=== PATIENT | male | born 1960 | race Caucasian/White ===

== ENCOUNTER 2018-05-13 18:01 | Inpatient (IN) | payer OTHER ==
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
[2018-05-13 19:28] LABS: BASO % 0.6 % (0-2.0); EOS % 0.8 % (0-4.5); HEMATOCRIT 48.4 % (35.4-49); HEMOGLOBIN 16.4 GM/dL (11.7-16.9); LYMPH % 10.5 % (8-40); MCH 30.6 pg (25.7-33.7); MCHC 33.9 g/dl (32.0-35.9); MEAN CELL VOLUME 90.3 fl (80-96); MONO % 7.7 % (3.8-10.2); NEUT % 80.4 % (42.8-82.8); PLATELET COUNT 311 K/MM3 (134-434); RBC 5.36 M/mm3 (4.00-5.60); RDW 13.8 % (11.9-15.9); WHITE BLOOD COUNT 19.7 K/mm3 (4.0-10.0)
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
[2018-05-13 20:26] LABS: INR 1.08 (0.83-1.09); PROTHROMBIN TIME (PATIENT) 12.8 SEC (9.7-13.0)
[2018-05-13 20:36] LABS: ALK PHOS 91 U/L (45-117); ANION GAP 11 MMOL/L (8-16); BILIRUBIN,TOTAL 0.6 mg/dL (0.2-1); BLOOD UREA NITROGEN 23 mg/dL (7-18); CALCIUM 9.2 mg/dL (8.5-10.1); CHLORIDE 95 mmol/L (98-107); CO2 30 mmol/L (21-32); GLUCOSE,RANDOM 134 mg/dL (74-106); N-TERMINAL BNP 71.3 pg/ml (5-125); SGOT/AST 17 U/L (15-37); SGPT/ALT 23 U/L (13-61); SODIUM 135 mmol/L (136-145); TOT PROT 8.2 g/dl (6.4-8.2)
[2018-05-13 20:41] LABS: POTASSIUM 2.8 mmol/L (3.5-5.1)
[2018-05-13] MEDS ORDERED: POTASSIUM CHLORIDE TABS 20 MEQ TABLET.ER (FP) PO ONE ×2 (20:41→21:45)
[2018-05-13] MEDS ORDERED: SODIUM CHLORIDE 0.9% 1000 ML INFUS.BAG IV ONE (22:48)
[2018-05-13] MEDS ORDERED: VANCOMYCIN 1,000 MG in DEXTROSE 5%-WATER - 250 ML IVPB ONE (23:01)
[2018-05-13] MEDS ORDERED: VANCOMYCIN 1 GRAM (PRE-DOCKED) 1,000 MG/250 ML BAG IVPB ONE (23:04)
[2018-05-13] MEDS ORDERED: SODIUM CHLORIDE 1,000 ML IV SCH (23:30)
--- NOTE | 2018-05-13 23:37 | HP ---
Admitting History and Physical - Admission Chief Complaint: sob on excertion. t wave inversions in my office History of Present Illness: h/o hiv ? 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??) Cardiovascular: Yes: HTN Pulmonary: Yes: Other (sob) Hepatobiliary: Yes: Hepatitis C - Smoking History Smoking history: Current every day smoker Have you smoked in the past 12 months: Yes Aproximately how many cigarettes per day: 20 - Alcohol/Substance Use Hx Alcohol Use: Yes (VODKA) - Social History Usual Living Arrangement: Yes: Alone ADL: Independent History of Recent Travel: No Home Medications - Allergies Allergies/Adverse Reactions: Allergies Allergy/AdvReac Type Severity Reaction Status Date / Time No Known Allergies Allergy Verified 05/13/18 18:13 - Home Medications Home Medications: Ambulatory Orders Pregabalin [Lyrica -] 200 mg PO TID 06/17/14 Abacavir/Dolutegravir/Lamivudi [Triumeq 600-50-300 mg Tablet] 1 tab PO DAILY 07/27 Amlodipine Besylate [Norvasc -] 5 mg PO DAILY 05/13/18 Chlorthalidone [Hygroton -] 50 mg PO DAILY 05/13/18 Cholecalciferol (Vitamin D3) [Vitamin D3 -] 2,000 unit PO DAILY 05/13/18 Methadone [Dolophine -] 40 mg PO DAILY 05/13/18 Multivit-Mins/Iron/Folic/Lycop [Centrum Men's Tablet] 1 each PO DAILY 05/13/18 Olmesartan Medoxomil [Benicar (Nf)] 40 mg PO DAILY 05/13/18 Pramipexole Di-HCl [Pramipexole ER] 0.75 mg PO BID 05/13/18 Family Disease History - Family Disease History Family History: Unremarkable Family Disease History: Other: Grandparent (ETOH DEPENDENT - ) Review of Systems - Review of Systems Respiratory: reports: SOB on Exertion Integumentary: reports: Other (bradley psoriatic rash legs?) Physical Examination Vital Signs: Vital Signs Temperature 97.5 F L 05/13/18 18:13 Pulse Rate 106 H 05/13/18 18:13 Respiratory Rate 24 H 05/13/18 18:13 Blood Pressure 136/80 05/13/18 18:13 O2 Sat by Pulse Oximetry (%) 94 L 05/13/18 18:13 Constitutional: Yes: Well Nourished Eyes: Yes: WNL HENT: Yes: WNL Neck: Yes: WNL Cardiovascular: Yes: WNL Respiratory: Yes: WNL Gastrointestinal: Yes: WNL ...Rectal Exam: Yes: Deferred Renal/: Yes: WNL Breast(s): Yes: WNL Musculoskeletal: Yes: WNL Extremities: Yes: WNL (bradley iv may), Other (rash ? psoriatic) Edema: No Peripheral Pulses WNL: Yes Integumentary: Yes: Rash (legs) Neurological: Yes: Other (mild oms) Psychiatric: Yes: WNL Labs: CBC, BMP 05/13/18 19:07 05/13/18 19:07 Assessment/Plan ct brain aic heb viral load id to see pt will place meds in am diet oob vanco iv chk labs in am
[2018-05-14 05:56] LABS: BASO % 0.9 % (0-2.0); EOS % 3.3 % (0-4.5); HEMATOCRIT 41.5 % (35.4-49); HEMOGLOBIN 14.1 GM/dL (11.7-16.9); LYMPH % 25.4 % (8-40); MCH 30.2 pg (25.7-33.7); MCHC 34.1 g/dl (32.0-35.9); MEAN CELL VOLUME 88.4 fl (80-96); MEAN PLT VOLUME 8.2 fl (7.5-11.1); MONO % 10.2 % (3.8-10.2); NEUT % 60.2 % (42.8-82.8); PLATELET COUNT 248 K/MM3 (134-434); RBC 4.69 M/mm3 (4.00-5.60); RDW 13.8 % (11.9-15.9); WHITE BLOOD COUNT 7.8 K/mm3 (4.0-10.0)
[2018-05-14 06:42] LABS: ALBUMIN 3.3 g/dl (3.4-5.0); ALK PHOS 76 U/L (45-117); ANION GAP 8 MMOL/L (8-16); BILIRUBIN,TOTAL 0.4 mg/dL (0.2-1); BLOOD UREA NITROGEN 23 mg/dL (7-18); CALCIUM 8.3 mg/dL (8.5-10.1); CHLORIDE 97 mmol/L (98-107); CO2 31 mmol/L (21-32); CREATININE 0.8 mg/dL (0.55-1.3); GLUCOSE,RANDOM 101 mg/dL (74-106); POTASSIUM 3.1 mmol/L (3.5-5.1); SGOT/AST < 3 U/L (15-37); SGPT/ALT 33 U/L (13-61); SODIUM 136 mmol/L (136-145); TOT PROT 7.1 g/dl (6.4-8.2)
[2018-05-14] MEDS ORDERED: POTASSIUM CHLORIDE ORAL LIQUID 20 MEQ/15 ML PO ONE (09:15)
--- NOTE | 2018-05-14 11:13 | EKG ---
Test Reason : Blood Pressure : / mmHG Vent. Rate : 071 BPM Atrial Rate : 071 BPM P-R Int : 154 ms QRS Dur : 094 ms QT Int : 438 ms P-R-T Axes : 061 026 070 degrees QTc Int : 475 ms NORMAL SINUS RHYTHM NONSPECIFIC ST ABNORMALITY ABNORMAL ECG WHEN COMPARED WITH ECG OF 27-NOV-2005 14:21, NO SIGNIFICANT CHANGE WAS FOUND Confirmed by ASHWIN FOX, CINTHYA ([id number]) on 05/14/2018 11:12:51 AM Referred By: Confirmed By:CINTHYA CHRISTOPHER MD
--- NOTE | 2018-05-14 12:34 | PN ---
Progress Note, Physician Chief Complaint: pt now c/o cp s0b - Current Medication List Current Medications: Active Medications Sodium Chloride (Normal Saline -) 1,000 mls @ 50 mls/hr IV ASDIR HORTENCIA Stop: 05/14/18 23:29 Last Admin: 05/14/18 00:20 Dose: 50 mls/hr - Objective Vital Signs: Vital Signs Temperature 97.5 F L 05/13/18 18:13 Pulse Rate 94 H 05/14/18 06:30 Respiratory Rate 18 05/14/18 06:30 Blood Pressure 138/76 05/14/18 06:30 O2 Sat by Pulse Oximetry (%) 96 05/14/18 06:30 Constitutional: Yes: Well Nourished Eyes: Yes: WNL HENT: Yes: WNL Neck: Yes: WNL Cardiovascular: Yes: WNL Respiratory: Yes: WNL Gastrointestinal: Yes: WNL ...Rectal Exam: Yes: Deferred Genitourinary: Yes: WNL Breast(s): Yes: WNL Musculoskeletal: Yes: WNL Extremities: Yes: WNL Edema: No Peripheral Pulses WNL: Yes Integumentary: Yes: WNL Neurological: Yes: WNL ...Motor Strength: WNL Psychiatric: Yes: WNL Labs: CBC, BMP 05/14/18 05:30 05/14/18 05:30 INR, PTT INR 1.08 (0.83-1.09) 05/13/18 19:35 Assessment/Plan bp meds in now methodone 40 mg q day trop levils card consult strees rest
--- NOTE | 2018-05-14 12:42 | EKG ---
Test Reason : Blood Pressure : / mmHG Vent. Rate : 093 BPM Atrial Rate : 093 BPM P-R Int : 156 ms QRS Dur : 090 ms QT Int : 576 ms P-R-T Axes : 063 061 060 degrees QTc Int : 716 ms SINUS RHYTHM WITH PREMATURE ATRIAL COMPLEXES NONSPECIFIC ST AND T WAVE ABNORMALITY ABNORMAL ECG WHEN COMPARED WITH ECG OF 27-NOV-2005 14:21, PREMATURE ATRIAL COMPLEXES ARE NOW PRESENT NON-SPECIFIC CHANGE IN ST SEGMENT IN ANTERIOR LEADS T WAVE INVERSION NOW EVIDENT IN ANTERIOR LEADS QT HAS LENGTHENED Confirmed by ASHWIN FOX, CINTHYA ([id number]) on 05/14/2018 12:42:10 PM Referred By: Confirmed By:CINTHYA CHRISTOPHER MD
--- NOTE | 2018-05-14 13:56 | ECHO ---
Name: ARLENE SIDDIQUI Exam:Adult Echocardiogram Study Date: 05/14/2018 09:43 AM Age: 57 yrs Reason For Study: R/O ENDOCARDITIS WBC HIGH HIV Height: 73 in Weight: 260 lb BSA: 2.4 m2 MMode/2D Measurements & Calculations IVSd: 1.0 cm Ao root diam: 4.1 cm LVIDd: 4.8 cm LA dimension: 3.6 cm LVIDs: 2.6 cm ACS: 2.5 cm LVPWd: 0.89 cm IVSs: 1.1 cm LVPWs: 1.3 cm EDV(Teich): 108.4 ml ESV(Teich): 24.0 ml Doppler Measurements & Calculations MV E max ernst: 56.5 cm/sec Ao V2 max: 135.7 cm/sec MV A max ernst: 82.9 cm/sec Ao max P.4 mmHg MV E/A: 0.68 Ao V2 mean: 101.4 cm/sec Ao mean P.5 mmHg Ao V2 VTI: 26.4 cm TR max ernst: 349.1 cm/sec PI end-d ernst: 114.0 cm/sec TR max P.0 mmHg Med Peak E' Ernst: 5.6 cm/sec Med E/e': 10.2 Lat Peak E' Ernst: 12.2 cm/sec Lat E/e': 4.6 Procedure The study was technically difficult with many images being suboptimal in quality. Left Ventricle The left ventricular size, thickness and function are normal. The left ventricular ejection fraction is normal. E/A reversal consistent with but not diagnostic of poor LV compliance. The left ventricular w all motion is normal. Right Ventricle The right ventricle is normal in size and function. Atria Normal left and right atrial size and function. Mitral Valve The mitral valve is not well visualized. A vegetation on the mitral valve cannot be excluded. There i s no mitral valve stenosis. There is trace to mild mitral regurgitation. Tricuspid Valve The tricuspid valve is not well visualized. There is no tricuspid stenosis. There is moderate to kamilla re tricuspid regurgitation. Right ventricular systolic pressure is elevated at 50-60mmHg. Aortic Valve The aortic valve is not well visualized. No hemodynamically significant valvular aortic stenosis. No aortic regurgitation is present. Pulmonic Valve The pulmonic valve is not well visualized. There is no pulmonic valvular stenosis. Trace to mild pulm onic valvular regurgitation. Great Vessels Mild aortic root dilatation. Pericardium/Pleura There is no pericardial effusion. Interpretation Summary Clinical correlation is recommended. Would consider a transesophageal echocardiogram if clinically in dicated. The left ventricular size, thickness and function are normal The left ventricular ejection fraction is normal. There is moderate to severe tricuspid regurgitation. E/A reversal consistent with but not diagnostic of poor LV compliance The left ventricular wall motion is normal. Right ventricular systolic pressure is elevated at 50-60mmHg. A vegetation on the mitral valve cannot be excluded. There is trace to mild mitral regurgitation. Clinical correlation is recommended. Would consider a transesophageal echocardiogram if clinically indicated. MD Levi Ludwig 05/14/2018 01:56 PM
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
[2018-05-14] MEDS ORDERED: METHADONE HCL 40 MG DISPERSABLE TABLET ONE (17:03)
[2018-05-14] MEDS: METHADONE HCL 40 MG DISPERSABLE TABLET PO SCH (17:19)
[2018-05-15 00:20] VITALS: BMI 32.2
[2018-05-15 07:12] LABS: BASO % 1.2 % (0-2.0); EOS % 5.2 % (0-4.5); MCH 30.3 pg (25.7-33.7); MCHC 34.2 g/dl (32.0-35.9); MEAN CELL VOLUME 88.7 fl (80-96); MEAN PLT VOLUME 8.4 fl (7.5-11.1); MONO % 12.7 % (3.8-10.2); NEUT % 48.9 % (42.8-82.8); PLATELET COUNT 226 K/MM3 (134-434); RBC 4.29 M/mm3 (4.00-5.60); WHITE BLOOD COUNT 5.2 K/mm3 (4.0-10.0)
[2018-05-15 07:42] LABS: ANION GAP 7 MMOL/L (8-16); BLOOD UREA NITROGEN 22 mg/dL (7-18); CALCIUM 8.7 mg/dL (8.5-10.1); CHLORIDE 101 mmol/L (98-107); CO2 31 mmol/L (21-32); CREATININE 0.8 mg/dL (0.55-1.3); GLUCOSE,RANDOM 111 mg/dL (74-106); POTASSIUM 3.2 mmol/L (3.5-5.1); SODIUM 139 mmol/L (136-145)
[2018-05-15] MEDS: METHADONE HCL 40 MG DISPERSABLE TABLET PO SCH (09:19)
[2018-05-15] MEDS: amLODIPine BESYLATE 5 MG TABLET (FP) PO SCH (09:20)
[2018-05-15] MEDS ORDERED: POTASSIUM CHLORIDE ORAL LIQUID 20 MEQ/15 ML PO ONE (10:00)
--- NOTE | 2018-05-15 11:10 | PN ---
Progress Note, Physician Chief Complaint: c,p msob n/c tolerating diet vss nl bm ? smoking in rm told him not to he sied will not smoke - Current Medication List Current Medications: Active Medications Amlodipine Besylate (Norvasc -) 5 mg PO DAILY [facility] Last Admin: 05/15/18 09:20 Dose: 5 mg Methadone HCl (Dolophine -) 40 mg PO DAILY [facility] Last Admin: 05/15/18 09:19 Dose: 40 mg - Objective Vital Signs: Vital Signs Temperature 98 F 05/15/18 09:00 Pulse Rate 75 05/15/18 09:00 Respiratory Rate 18 05/15/18 09:00 Blood Pressure 123/80 05/15/18 09:00 O2 Sat by Pulse Oximetry (%) 95 05/14/18 21:15 Constitutional: Yes: Well Nourished, Other (sob? cp? skelatil???) Eyes: Yes: WNL HENT: Yes: WNL Neck: Yes: WNL Cardiovascular: Yes: Regular Rate and Rhythm Respiratory: Yes: SOB on Exertion Gastrointestinal: Yes: WNL ...Rectal Exam: Yes: Deferred Genitourinary: Yes: WNL Breast(s): Yes: Gynecomastia Musculoskeletal: Yes: WNL Extremities: Yes: WNL Edema: No Edema: LUE: 1+, RUE: 1+, LLE: 1+, RLE: 1+ Peripheral Pulses WNL: Yes Integumentary: Yes: WNL Wound/Incision: Yes: Excoriated Labs: CBC, BMP 05/15/18 06:20 05/15/18 06:20 INR, PTT INR 1.08 (0.83-1.09) 05/13/18 19:35 Assessment/Plan stress in am ? d/c if nl alicia out pt if fever wbc high cont all tx as is refusing adllas patch p/t eval in AM
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
--- NOTE | 2018-05-15 15:23 | PN ---
Progress Note, Physician - Current Medication List Current Medications: Active Medications Amlodipine Besylate (Norvasc -) 5 mg PO DAILY [facility] Last Admin: 05/15/18 09:20 Dose: 5 mg Methadone HCl (Dolophine -) 40 mg PO DAILY [facility] Last Admin: 05/15/18 09:19 Dose: 40 mg - Objective Vital Signs: Vital Signs Temperature 98 F 05/15/18 09:00 Pulse Rate 75 05/15/18 09:00 Respiratory Rate 18 05/15/18 09:00 Blood Pressure 123/80 05/15/18 09:00 O2 Sat by Pulse Oximetry (%) 95 05/14/18 21:15 Labs: CBC, BMP 05/15/18 06:20 05/15/18 06:20 INR, PTT INR 1.08 (0.83-1.09) 05/13/18 19:35
[2018-05-16 07:36] LABS: BASO % 0.2 % (0-2.0); HEMATOCRIT 39.8 % (35.4-49); HEMOGLOBIN 13.8 GM/dL (11.7-16.9); LYMPH % 31.4 % (8-40); MCHC 34.6 g/dl (32.0-35.9); MEAN CELL VOLUME 89.6 fl (80-96); MEAN PLT VOLUME 8.5 fl (7.5-11.1); MONO % 11.4 % (3.8-10.2); PLATELET COUNT 222 K/MM3 (134-434); RBC 4.44 M/mm3 (4.00-5.60); RDW 13.9 % (11.9-15.9); WHITE BLOOD COUNT 5.4 K/mm3 (4.0-10.0)
[2018-05-16] MEDS: amLODIPine BESYLATE 5 MG TABLET (FP) PO SCH ×2 (07:57→11:56)
[2018-05-16 08:07] VITALS: BP 153/72; PULSE 80; TEMP 98
[2018-05-16 08:23] LABS: ANION GAP 7 MMOL/L (8-16); BLOOD UREA NITROGEN 24 mg/dL (7-18); CHLORIDE 103 mmol/L (98-107); CO2 30 mmol/L (21-32); CREATININE 0.9 mg/dL (0.55-1.3); GLUCOSE,RANDOM 99 mg/dL (74-106); POTASSIUM 3.3 mmol/L (3.5-5.1); SODIUM 141 mmol/L (136-145)
[2018-05-16] MEDS ORDERED: REGADENOSON 0.4 MG/5 ML PRE-FILLED SYRINGE IVPUSH ONE ×2 (09:22→09:30)
[2018-05-16] MEDS ORDERED: POTASSIUM CHLORIDE ORAL LIQUID 20 MEQ/15 ML PO SCH (10:00)
[2018-05-16] MEDS: METHADONE HCL 40 MG DISPERSABLE TABLET PO SCH (11:58)
--- NOTE | 2018-05-16 12:15 | DS ---
Physical Examination Vital Signs: Vital Signs Temperature 98.0 F 05/16/18 08:06 Pulse Rate 80 05/16/18 08:06 Respiratory Rate 20 05/16/18 09:00 Blood Pressure 153/72 05/16/18 08:06 O2 Sat by Pulse Oximetry (%) 97 05/16/18 09:00 Constitutional: Yes: Well Nourished Eyes: Yes: WNL HENT: Yes: WNL Neck: Yes: WNL Cardiovascular: Yes: WNL Respiratory: Yes: WNL Gastrointestinal: Yes: WNL ...Rectal Exam: Yes: Deferred Renal/: Yes: WNL Breast(s): Yes: WNL Extremities: Yes: WNL Edema: Yes Peripheral Pulses WNL: No Integumentary: Yes: WNL Wound/Incision: Yes: Clean/Dry Neurological: Yes: WNL ...Motor Strength: WNL Psychiatric: Yes: WNL Labs: CBC, BMP 05/16/18 07:20 05/16/18 07:20 Discharge Summary Reason For Visit: OPIOD DEPENDENCE,DYSPNEA ON EXERTION, Current Active Problems BRADY (dyspnea on exertion) (Acute) Condition: Good - Instructions Diet, Activity, Other Instructions: f/u w me in 3 days cont all meds as is at home called [facility] for kcl 20mg daily d/c home today Referrals: Kyle Layne MD [Primary Care Provider] - Disposition: HOME - Home Medications Comprehensive Discharge Medication List: Ambulatory Orders Pregabalin [Lyrica -] 200 mg PO TID 06/17/14 Abacavir/Dolutegravir/Lamivudi [Triumeq 600-50-300 mg Tablet] 1 tab PO DAILY 07/27 Amlodipine Besylate [Norvasc -] 5 mg PO DAILY 05/13/18 Chlorthalidone [Hygroton -] 50 mg PO DAILY 05/13/18 Cholecalciferol (Vitamin D3) [Vitamin D3 -] 2,000 unit PO DAILY 05/13/18 Methadone [Dolophine -] 40 mg PO DAILY 05/13/18 Multivit-Mins/Iron/Folic/Lycop [Centrum Men's Tablet] 1 each PO DAILY 05/13/18 Olmesartan Medoxomil [Benicar (Nf)] 40 mg PO DAILY 05/13/18 Pramipexole Di-HCl [Pramipexole ER] 0.75 mg PO BID 05/13/18
== END 2018-05-16 13:31 | disposition home or self-care (01) | DRG 204 ==
LOC: JER 18:01 → JERBED 23:11 → J4W 05-14 21:03
PROVIDERS: ADMIT Family Medicine; ATTEND Family Medicine
DX: R06.00 Dyspnea, unspecified (principal); R07.89 Other chest pain; I10 Essential (primary) hypertension; F17.210 Nicotine dependence, cigarettes, uncomplicated; Z21 Asymptomatic human immunodeficiency virus [HIV] infection status; B19.20 Unspecified viral hepatitis C without hepatic coma; F11.10 Opioid abuse, uncomplicated; F10.10 Alcohol abuse, uncomplicated; I36.2 Nonrheumatic tricuspid (valve) stenosis with insufficiency; E87.6 Hypokalemia
CPT/HCPCS: 36415; 71275-TC; 78452-TC; 80048; 80053; 82550; 83036; 83605; 83880; 84484; 85025; 85610; 87040; 87902; 93005; 93010; 93017; 93306-TC; 99285-25; A9502; J2785; J7030